=== PATIENT | female | born 1985 ===

== ENCOUNTER 2022-01-27 20:50 | Emergency (ER) | payer MEDICARE ==
[2022-01-28 05:31] LABS: Bilirubin,Urine NEG (Negative); Blood,Urine SM (Negative); Color,Urine Straw (Yellow); Protein,Urine <15 mg/dL mg/dL (Negative); Urobilinogen,Urine < 2.0 mg/dL (<2.0)
--- NOTE | 2022-01-28 08:10 | Emergency Department Report ---
ED Back Pain/Injury HPI - General Chief Complaint: Back Pain/Injury Stated Complaint: MAJOR BACK PAIN Time Seen by Provider: 01/28/22 05:04 Source: patient Limitations: No Limitations - History of Present Illness Initial Comments: 36-year-old F [place] female presents emerged department complaining of pain to her lower back area worse with palpation and and and range of motion. Thanks the pain may be related to dehydration due to her decreased food and fluid intake as she has been sleeping and that custodial over the last few days. Pain started after she started sleeping in the custodial she reports no loss of bowel bladder, no saddle paresthesia no increased urination no decreased urinary production or increased frequency. She reports no hematuria no hematemesis hematochezia, no cough cold or congestion. MD Complaint: back pain -: Gradual Radiation: none Quality: dull, aching Consistency: constant Improves With: none Worsens With: none Context: unknown, other (Sleeping in a custodial but thinks she may have been dehydrated due to her decreased food and fluid intake) Associated Symptoms: denies other symptoms. denies: weakness, chest pain, numbness, fever/chills, headaches, abdominal pain, rash, shortness of breath - Related Data Previous Rx's Medication Instructions Recorded Last Taken Type Ketorolac [Toradol] 10 mg PO Q6H PRN #14 01/28/22 Unknown Rx Allergies Allergy/AdvReac Type Severity Reaction Status Date / Time No Known Allergies Allergy Unverified 01/27/22 21:15 ED Review of Systems ROS: Stated complaint: MAJOR BACK PAIN Other details as noted in HPI Comment: All other systems reviewed and negative ED Past Medical Hx - Past Medical History Previous Medical History?: No - Surgical History Past Surgical History?: No - Medications Home Medications: Home Medications Medication Instructions Recorded Confirmed Last Taken Type Ketorolac [Toradol] 10 mg PO Q6H PRN #14 01/28/22 Unknown Rx ED Physical Exam - General Limitations: No Limitations General appearance: alert, in no apparent distress - Head Head exam: Present: atraumatic, normocephalic - Eye Eye exam: Present: normal appearance, PERRL, EOMI Pupils: Present: normal accommodation - ENT ENT exam: Present: normal exam, normal orophraynx, mucous membranes moist, TM's normal bilaterally - Neck Neck exam: Present: normal inspection, full ROM - Respiratory Respiratory exam: Present: normal lung sounds bilaterally. Absent: respiratory distress, wheezes, rales, chest wall tenderness, accessory muscle use - Cardiovascular Cardiovascular Exam: Present: regular rate, normal rhythm. Absent: systolic murmur, diastolic murmur, rubs, gallop - GI/Abdominal GI/Abdominal exam: Present: soft, normal bowel sounds - Extremities Exam Extremities exam: Present: normal inspection - Back Exam Back exam: Present: normal inspection, paraspinal tenderness. Absent: CVA tenderness (R), CVA tenderness (L), muscle spasm - Neurological Exam Neurological exam: Present: alert, oriented X3, CN II-XII intact - Psychiatric Psychiatric exam: Present: normal affect, normal mood - Skin Skin exam: Present: warm, dry, intact, normal color. Absent: rash ED Course Vital Signs 01/27/22 21:15 Temperature 99.0 F Pulse Rate 103 H Respiratory 18 Rate Blood Pressure 144/110 O2 Sat by Pulse 97 Oximetry ED Medical Decision Making - Medical Decision Making Pt presents the emergency department complaining of back pain most consistent with nonemergent back Pain . Differential Diagnosis Includes Lumbar Go Versus Musculoskeletal Spasm, Strain Versus Sciatica. No Back Pain Red Flags on History or Physical. Presentation Not Consistent with Malignancy, Fracture, Cauda Equina, Abdominal Aortic Aneurysm, Viscus Perforation, Pulmonary Embolism, Renal Colic, Pyelonephritis. Patient reports no B symptoms, trauma trauma, incontinence, saddle anesthesia, distal weakness, urinary symptoms and is a febrile. Critical care attestation.: If time is entered above; I have spent that time in minutes in the direct care of this critically ill patient, excluding procedure time. ED Disposition Clinical Impression: Back pain Disposition: HOME / SELF CARE / HOMELESS Is pt being admited?: No Does the pt Need Aspirin: No Condition: Stable Instructions: Acute Back Pain, Adult Additional Instructions: You have been evaluate emergency department seeking follow-up back pain no evidence of any dehydration was discovered. No urinary tract infection present as was initial suspicion. Will be treated accordingly with musculoskeletal relieving medications please be sure to follow-up with your primary care provider for further evaluation and management of this nonemergent back pain Prescriptions: Ketorolac [Toradol] 10 mg PO Q6H PRN #14 PRN Reason: Pain Referrals: [facility] [Provider Group] - 3-5 Days
[2022-01-28 09:08] VITALS: BP 118/80
== END 2022-01-28 09:08 | disposition home or self-care (01) ==
LOC: ED 20:50
DX: M54.50 Low back pain, unspecified (principal)
CPT/HCPCS: 81001; 99283